=== PATIENT | female | born 1990 | race Two or more races ===

== ENCOUNTER 2017-03-04 19:15 | Observation (INO) | payer OTHER ==
[2016-01-29 14:35] VITALS: BP 135/84
[2017-03-04] MEDS ORDERED: IV RINGERS,LACTATED 1000ML 1,000 ML IV SCH (19:29)
[2017-03-04 19:53] LABS: BILIRUBIN,URINE NEGATIVE (NEG); GLUCOSE,URINE NEGATIVE (NEG); NITRITE,URINE NEGATIVE (NEG); PH,URINE 6.5; PROTEIN,URINE NEGATIVE (NEG-TRACE)
[2017-03-04 20:07] LABS: BACTERIA,URINE FEW /HPF (0-FEW); RBC,URINE 0 /HPF (0-2); SQUAMOUS EPITHELIAL CELL,UR OCC /LPF; WBC,URINE OCC /HPF (0-4)
== END 2017-03-04 21:55 | disposition home or self-care (01) ==
LOC: 3 SO LND 19:15
PROVIDERS: ADMIT Specialist; ATTEND Specialist
DX: O26.893 Other specified pregnancy related conditions, third trimester (principal); R10.9 Unspecified abdominal pain; Z3A.38 38 weeks gestation of pregnancy
CPT/HCPCS: 81001; 87086; G0378; G0379

== ENCOUNTER 2017-03-13 07:03 | Inpatient (IN) | payer OTHER ==
[~2017-03-13] VITALS: Ht 160 cm; Wt 73.9 kg
[2017-03-13] MEDS ORDERED: LIDOCAINE 1% PF 30 ML VIAL. INJ PRN (07:15)
[2017-03-13] MEDS ORDERED: OXYTOCIN 30 UNIT/500 ML PREMIX 500 ML IV PRN ×3 (07:15→22:45)
[2017-03-13] MEDS ORDERED: 0.9 % SODIUM CHLORIDE 10 ML DISP.SYRIN. IV PRN ×2 (07:15→22:45)
[2017-03-13] MEDS ORDERED: BUTORPHANOL 2 MG/ML VIAL. IV PRN (07:15)
[2017-03-13] MEDS ORDERED: fentaNYL PF VIAL 100 MCG/2 ML VIAL IV PRN (07:15)
[2017-03-13] MEDS ORDERED: TERBUTALINE 1 MG/ML VIAL. SQ PRN (07:15)
[2017-03-13 07:30] VITALS: BP 104/62
[2017-03-13] MEDS: IV RINGERS,LACTATED 1000ML 1,000 ML IV PRN ×4 (08:30→21:59)
[2017-03-13 09:51] LABS: HEMATOCRIT 37.4 % (36.0-47.0); HEMOGLOBIN 13.2 g/dL (12.0-15.5); RED BLOOD COUNT 4.48 x10^6/uL (3.50-5.40); RED CELL DISTRIBUTION WIDTH 13.8 % (11.5-14.5); WHITE BLOOD COUNT 13.9 x10^3/uL (4.0-11.0)
[2017-03-13] MEDS ORDERED: ROPIVacaine 0.2% IN 0.9%NACL PF 40 MG/20 ML DISP.SYRIN. ONE ×3 (14:06→17:05)
[2017-03-13] MEDS ORDERED: NALOXONE 0.4 MG/ML VIAL. IV PRN (14:15)
[2017-03-13] MEDS ORDERED: L&D EPIDURAL CASSETTE 100 ML EP PRN (14:15)
[2017-03-13] MEDS ORDERED: ROPIVacaine 0.2% PF 10 ML VIAL. EPI ONE (14:15)
[2017-03-13] MEDS ORDERED: ONDANSETRON PF 4 MG/2 ML VIAL. IV PRN (14:15)
[2017-03-13] MEDS ORDERED: ePHEDrine PF IN SALINE 50 MG/5 ML DISP.SYRIN IV PRN (14:15)
[2017-03-13] MEDS ORDERED: fentaNYL PF VIAL 100 MCG/2 ML VIAL EPI ONE (14:15)
[2017-03-13] MEDS ORDERED: LIDOCAINE 2% PF Vial for OR 5 ML VIAL. ONE (19:08)
[2017-03-13] MEDS ORDERED: CITRIC ACID/SODIUM CITRATE 30 ML SOLUTION. PO ONE (21:00)
--- NOTE | 2017-03-13 22:43 | PDOC1 ---
OB - History Hx of Present Care: Good Care Ultrasounds: Normal mid trimester US Obstetrical Complications: None Medical Complications: None Past Family/Social History * Past Medical, Surgical, Family and Obstetric Histories reviewed from chart. Blood Type: O+ Rubella: Immune RPR/VDRL: Negative GBS Status: Negative HBsAG: Negative OB - Chief Complaint & HPI Date of Admission: Date of Admission: Mar 13, 2017 at 07:03 Chief Complaint/History : 3 Para: 2 EDC: Feb 14, 2017 Reason for admission: induction of labor Indication for induction: other Admission Nurse Assessment Rev: Yes Problems: OB - Admission Exam Physical Exam Vitals: VS - Last 72 Hours, by Label Date Time Temp Pulse Resp B/P (MAP) Pulse Ox O2 Delivery O2 Flow Rate FiO2 03/13/17 14:46 20 100 Room Air 03/13/17 14:36 20 100 Room Air 03/13/17 07:30 97.9 95 20 104/62 (76) 97.9 HEENT: Normal, Nasal Mucosa Normal, Oropharynx Normal, Moist Membranes, Fontanelles Normal Heart: Regular Rate Lungs: Clear, Equal Abdomen: Gravid Extremities: Normal Pulses, No tenderness or swelling Reflexes: Normal Cervical Dilatation: 1cm Effacement: 25% Station: Ballotable Membranes: Intact Amniotic Fluid: Clear Accelerations: Accelerations Present Short Term Variability: Present Contractions on Admission: >10 Minutes Apart Intensity: Mild Assessment/Plan Assessment/Plan TIUP Induction ACSVD Problems: MASSIMO RAYMUNDO MD Mar 13, 2017 22:43
[2017-03-13] MEDS ORDERED: PHENYLEPH/MINERAL OIL/PETROLAT RECTAL OINTMENT 28GM TUBE. RC PRN (22:45)
[2017-03-13] MEDS ORDERED: diphenhydrAMINE HCL 25 MG CAPSULE PO PRN (22:45)
[2017-03-13] MEDS ORDERED: ACETAMINOPHEN 325 MG TABLET. PO PRN (22:45)
[2017-03-13] MEDS ORDERED: MAGNESIUM HYDROXIDE 2,400 MG/30 ML ORAL.SUSP. PO PRN (22:45)
[2017-03-13] MEDS ORDERED: BENZOCAINE 20% TOPICAL AEROSOL SPRAY 57GM CAN. TP PRN (22:45)
[2017-03-13] MEDS ORDERED: ZOLPIDEM 5 MG TABLET. PO PRN (22:45)
[2017-03-13] MEDS ORDERED: HYDROCORTISONE 1% TOPICAL OINTMENT 30GM TUBE. TP PRN (22:45)
[2017-03-13] MEDS ORDERED: SIMETHICONE 80 MG TAB.CHEW PO PRN (22:45)
[2017-03-13] MEDS ORDERED: MAG HYDROX/ALUMINUM HYD/SIMETH 30 ML ORAL.SUSP PO PRN (22:45)
--- NOTE | 2017-03-13 22:45 | PDOC ---
VAGINAL DELIVERY DATE DATE: 03/13/17 TIME: 22:43 : 3 Para: 2 EDC: Mar 16, 2017 VAGINAL DELIVERY: VTX VACCUM ASSISTED: No PLACENTA: Spontaneous SEX: Female WEIGHT 7/7 Nuchal Cord: No Amniotic Fluid: Clear PAIN: Epidural EPISIOTOMY: No EXTENSION: No EBL 300cc COMPLICATIONS None CONDITION Stable Signs of Intrauterine Infectio: None Shoulder Dystocia: No DIAGNOSIS TIUP del Problems: MASSIMO RAYMUNDO MD Mar 13, 2017 22:45
[2017-03-14 01:45] VITALS: BP 102/61
[2017-03-14 03:02] VITALS: BP 112/73
[2017-03-14 03:18] LABS: RPR REFLEX Non Reactive (Non Reactive)
[2017-03-14] MEDS: IBUPROFEN 800 MG TABLET. PO SCH ×2 (04:52→17:20)
[2017-03-14 05:51] VITALS: BP 99/65
[2017-03-14] MEDS ORDERED: FERROUS SULFATE 325 MG TABLET. PO SCH (08:00)
[2017-03-14] MEDS: HYDROcodone/APAP 5/325MG 1 TAB TABLET PO PRN (08:15)
--- NOTE | 2017-03-14 11:09 | PDOC ---
SURGICAL PROGRESS NOTE Subjective For surgery in the am. This may well be a ventral hernia and not umbilical hernia. Al questions answered. Vital Signs Vital Signs Date Time Temp Pulse Resp B/P (MAP) Pulse Ox O2 Delivery O2 Flow Rate FiO2 03/14/17 05:51 98.5 81 16 99/65 (76) 98.5 03/14/17 01:45 Room Air 03/13/17 14:46 100 I&O Intake and Output 03/14/17 06:59 Intake Total 2000 ml Balance 2000 ml Intake IV Total 2000 ml Labs Laboratory Tests Test 03/13/17 08:00 03/14/17 08:00 White Blood Count 13.9 x10^3/uL (4.0-11.0) Red Blood Count 4.48 x10^6/uL (3.50-5.40) Hemoglobin 13.2 g/dL (12.0-15.5) Hematocrit 37.4 % (36.0-47.0) 38.6 % (36.0-47.0) Mean Corpuscular Volume 84 fL (79-100) Mean Corpuscular Hemoglobin 30 pg (25-35) Mean Corpuscular Hemoglobin Concent 35 g/dL (31-37) Red Cell Distribution Width 13.8 % (11.5-14.5) Platelet Count 226 x10^3/uL (140-400) RPR Titer Additional Testing Non reactive (Non Reactive) Laboratory Tests Test 03/14/17 08:00 Hematocrit 38.6 % (36.0-47.0) BERNARDO VELASCO MD Mar 14, 2017 11:09
[2017-03-14 13:59] VITALS: BP 100/62
--- NOTE | 2017-03-14 17:22 | PDOC ---
OB Progress Note Date of Service 03/14/17 Time of Evaluation 1720 Notes Pt. feeling well. Lab Laboratory Tests Test 03/13/17 08:00 03/14/17 08:00 White Blood Count 13.9 x10^3/uL (4.0-11.0) Red Blood Count 4.48 x10^6/uL (3.50-5.40) Hemoglobin 13.2 g/dL (12.0-15.5) Hematocrit 37.4 % (36.0-47.0) 38.6 % (36.0-47.0) Mean Corpuscular Volume 84 fL (79-100) Mean Corpuscular Hemoglobin 30 pg (25-35) Mean Corpuscular Hemoglobin Concent 35 g/dL (31-37) Red Cell Distribution Width 13.8 % (11.5-14.5) Platelet Count 226 x10^3/uL (140-400) RPR Titer Additional Testing Non reactive (Non Reactive) Laboratory Tests Test 03/14/17 08:00 Hematocrit 38.6 % (36.0-47.0) Medications Current Medications Sodium Chloride (Normal Saline Flush) 3 ml QSHIFT PRN IV AFTER MEDS AND BLOOD DRAWS; Start 03/13/17 at 07:15; Stop 03/14/17 at 09:53; Status DC Ringer's Solution 1,000 ml @ 125 mls/hr Q8H PRN IV PER PROTOCOL Last administered on 03/13/17t 21:59; Start 03/13/17 at 07:15; Stop 03/14/17 at 09:53 ; Status DC Butorphanol Tartrate (Stadol) 2 mg PRN Q1HR PRN IV Severe labor pain; Start at 07:15; Stop 03/14/17 at 09:53; Status DC Fentanyl Citrate (Fentanyl 2ml Vial) 100 mcg PRN Q20MIN PRN IV Labor pain; Start 03/13/17 at 07:15; Stop 03/14/17 at 09:53; Status DC Terbutaline Sulfate (Brethine) 0.25 mg 1X PRN PRN SQ SEE COMMENTS; Start at 07:15; Stop 03/14/17 at 07:14; Status DC Lidocaine HCl 30 ml 1X PRN PRN INJ SEE COMMENTS; Start 03/13/17 at 07:15; Stop 03/14/17 at 09:53; Status DC Oxytocin/Sodium Chloride 500 ml @ 0 mls/hr CONT PRN IV SEE I/O RECORD Last administered on 03/13/17 08:32; Start 03/13/17 at 07:15; Stop 03/14/17 at 09:53 ; Status DC Oxytocin/Sodium Chloride 500 ml @ 0 mls/hr CONT PRN PRN IV Post delivery bleeding; Start 03/13/17 at 07:15; Stop 03/14/17 at 09:53; Status DC Ephedrine Sulfate 10 mg PRN Q2MIN PRN IV IF SBP<90; Start 03/13/17 at 14:15; Stop 03/14/17 at 09:53; Status DC Naloxone HCl (Narcan) 0.04 mg PRN Q1MIN PRN IV SEE COMMENTS; Start 03/13/17 at 14:15; Stop 03/14/17 at 09:53; Status DC Fentanyl Citrate (Fentanyl 2ml Vial) 100 mcg 1X ONCE EPI Last administered on 03/13/17 14:46; Start 03/13/17 at 14:15; Stop 03/14/17 at 09:53; Status DC Ropivacaine/ Fentanyl/NS 100 ml @ 14 mls/hr CONT PRN EP PAIN Last administered on 03/13/17 14:36; Start 03/13/17 at 14:15; Stop 03/14/17 at 09:53 ; Status DC Ondansetron HCl (Zofran) 4 mg PRN Q6HRS PRN IV NAUSEA/VOMITING; Start 03/13/17 at 14:15; Stop 03/14/17 at 09:53; Status DC Ropivacaine (Naropin 0.2%) 20 ml 1X ONCE EPI ; Start 03/13/17 at 14:15; Stop at 09:53; Status DC Ropivacaine 40 mg STK-MED ONCE .ROUTE ; Start 03/13/17 at 14:06; Stop 03/14/17 at 09:53; Status DC Ropivacaine 40 mg STK-MED ONCE .ROUTE ; Start 03/13/17 at 17:05; Stop 03/14/17 at 09:53; Status DC Lidocaine HCl (Lidocaine Pf 2% Vial) 5 ml STK-MED ONCE .ROUTE ; Start 03/13/17 at 19:08; Stop 03/14/17 at 09:53; Status DC Citric Acid/ Sodium Citrate (Bicitra) 30 ml 1X ONCE PO Last administered on 21:07; Start 03/13/17 at 21:00; Stop 03/13/17 at 21:02; Status DC Sodium Chloride (Normal Saline Flush) 10 ml QSHIFT PRN IV AFTER MEDS AND BLOOD DRAWS; Start 03/13/17 at 22:45; Stop 03/14/17 at 09:53; Status DC Oxytocin/Sodium Chloride 500 ml @ 62.5 mls/hr CONT PRN IV SEE I/O RECORD; Start 03/13/17 at 22:45; Stop 03/14/17 at 06:44; Status DC Acetaminophen (Tylenol) 650 mg PRN Q6HRS PRN PO MILD PAIN / TEMP; Start at 22:45 Ibuprofen (Motrin) 800 mg Q8HRS PO Last administered on 03/14/17 17:20; Start 03/14/17 at 06:00 Magnesium Hydroxide (Milk Of Magnesia) 2,400 mg PRN DAILY PRN PO CONSTIPATION; Start 03/13/17 at 22:45 Al Hydroxide/Mg Hydroxide (Mylanta Plus Xs) 30 ml PRN Q4HRS PRN PO HEARTBURN / GAS; Start 03/13/17 at 22:45 Simethicone (Gas-X) 80 mg PRN AFTMEALHC PRN PO GAS / BLOATING Last administered on 03/14/17 12:20; Start 03/13/17 at 22:45 Diphenhydramine HCl (Benadryl) 25 mg PRN Q6HRS PRN PO ITCHING Last administered on 03/14/17 01:14; Start 03/13/17 at 22:45 Benzocaine (Americaine) 1 spray PRN QID PRN TP TOPICAL PAIN; Start 03/13/17 at 22:45 Phenyleph/Shark Oil/Min Oil/Petrol (Preparation H) 1 evelina PRN QID PRN RC RECTAL PAIN; Start 03/13/17 at 22:45 Hydrocortisone (Cortaid) 1 evelina PRN QID PRN TP RECTAL PAIN; Start 03/13/17 at 22 :45 Ferrous Sulfate (Feosol) 325 mg BIDWMEALS PO ; Start 03/14/17 at 08:00 Zolpidem Tartrate (Ambien) 5 mg PRN QHS PRN PO INSOMNIA, MAY REPEAT X1; Start 03/13/17 at 22:45 Info (Do NOT chart on this placeholder) 1 ea 1X PRN PRN MC SEE COMMENTS; Start 03/13/17 at 22:45; Stop 03/14/17 at 09:53; Status DC Acetaminophen/ Hydrocodone Bitart (Lortab 5/325) 1 tab PRN Q4HRS PRN PO PAIN Last administered on 03/14/17t 08:15; Start 03/13/17 at 22:45 Ropivacaine 80 mg STK-MED ONCE .ROUTE ; Start 03/13/17 at 15:00; Stop 03/14/17 at 09:53; Status DC Cefazolin Sodium 50 ml @ 100 mls/hr 1X PREOP PRN IV PER PROTOCOL; Start at 11:30; Stop 03/14/17 at 19:00 Ondansetron HCl (Zofran) 4 mg PRN Q6HRS PRN IV NAUSEA/VOMITING; Start 03/15/17 at 07:00; Stop 03/15/17 at 23:00 Fentanyl Citrate (Fentanyl 2ml Vial) 25 mcg PRN Q5MIN PRN IV MILD PAIN; Start 03/15/17 at 07:00; Stop 03/15/17 at 23:00 Fentanyl Citrate (Fentanyl 2ml Vial) 50 mcg PRN Q5MIN PRN IV MODERATE PAIN; Start 03/15/17 at 07:00; Stop 03/15/17 at 23:00 Morphine Sulfate 1 mg PRN Q10MIN PRN IV SEVERE PAIN; Start 03/15/17 at 07:00; Stop 03/15/17 at 23:00 Ringer's Solution 1,000 ml @ 30 mls/hr Q24H IV ; Start 03/15/17 at 07:00; Stop 03/15/17 at 18:59 Lidocaine HCl 2 ml PRN 1X PRN ID PRIOR TO IV START; Start 03/15/17 at 07:00; Stop 03/15/17 at 23:00 Hydromorphone HCl (Dilaudid) 0.5 mg PRN Q10MIN PRN IV SEV PAIN, Second choice; Start 6/30/17 at 07:00; Stop 03/15/17 at 23:00 Prochlorperazine Edisylate (Compazine) 5 mg PACU PRN PRN IV NAUSEA, MRX1; Start 03/15/17 at 07:00; Stop 03/15/17 at 23:00 Exam Abd: soft, fundus firm at umbilicus Assessment PPD#1 s/p Hernia Plan of Care: Continue current Tx, Mgmt (Pt. to have hernia repair tomorrow.) ECTOR MACE Jr, MD Mar 14, 2017 17:22
[2017-03-14 21:22] VITALS: BP_SYST 117; BP_SYST 131; BP_DIAS 81
[2017-03-15] VITALS (14 sets, daily range): BP systolic 107–134; BP diastolic 56–84
[2017-03-15] MEDS: IBUPROFEN 800 MG TABLET. PO SCH ×4 (06:00→22:29)
[2017-03-15] MEDS ORDERED: PROCHLORPERAZINE 10 MG/2 ML VIAL. IV PRN (07:00)
[2017-03-15] MEDS ORDERED: IV RINGERS,LACTATED 1000ML 1,000 ML IV SCH (07:00)
[2017-03-15] MEDS ORDERED: MORPHINE SULFATE 2 MG/ML DISP.SYRIN. IV PRN (07:00)
[2017-03-15] MEDS ORDERED: LIDOCAINE 1% 1 ML SYRINGE. ID PRN (07:00)
[2017-03-15] MEDS ORDERED: HYDROmorphone 2 MG/ML VIAL IV PRN (07:00)
[2017-03-15] MEDS ORDERED: fentaNYL PF VIAL 100 MCG/2 ML VIAL IV PRN ×2 (07:00)
[2017-03-15] MEDS ORDERED: ONDANSETRON PF 4 MG/2 ML VIAL. IV PRN (07:00)
[2017-03-15] MEDS ORDERED: BUPIVACAINE-EPI 0.5%-1:200000 50 ML VIAL. ONE (08:33)
[2017-03-15] MEDS ORDERED: DESFLURANE > 120 MINUTES IH ONE (08:38)
[2017-03-15] MEDS ORDERED: MIDAZOLAM HCL/PF 2 MG/2 ML VIAL. ONE (08:39)
[2017-03-15] MEDS ORDERED: GLYCOPYRROLATE 1 MG/5 ML VIAL. ONE (08:39)
[2017-03-15] MEDS ORDERED: SUCCINYLCHOLINE 200 MG/10 ML VIAL. ONE (08:39)
[2017-03-15] MEDS ORDERED: fentaNYL PF VIAL 100 MCG/2 ML VIAL ONE ×2 (08:39→10:32)
[2017-03-15] MEDS ORDERED: ROCURONIUM 50 MG/5 ML VIAL. ONE (08:40)
[2017-03-15] MEDS ORDERED: KETOROLAC 30 MG/ML INJ FOR OR. INJ ONE (08:40)
[2017-03-15] MEDS ORDERED: DEXAMETHASONE SOD PHOS 20 MG/5 ML VIAL. ONE (08:40)
[2017-03-15] MEDS ORDERED: PROPOFOL 20 ML IV ONE (08:40)
[2017-03-15] MEDS ORDERED: NEOSTIGMINE METHYLSULFATE 5 MG/5 ML SYRINGE. ONE (08:40)
[2017-03-15] MEDS ORDERED: LIDOCAINE 2% PF Vial for OR 5 ML VIAL. ONE (08:40)
[2017-03-15] MEDS ORDERED: ONDANSETRON PF 4 MG/2 ML VIAL. ONE (08:40)
--- NOTE | 2017-03-15 09:13 | PDOC ---
SURGICAL PROGRESS NOTE Subjective Op Note: Surgeon............................................Arthur Pre op diag.......................................Abdominal wall hernia...Umbilical? Post or diag......................................Same Anesthesia.......................................General Procedure........................................Repair ventral hernia Drains..............................................none Fluids..............................................see anesthesia sheet Blood loss........................................5-10cc Condition.........................................satisfactory Vital Signs Vital Signs Date Time Temp Pulse Resp B/P (MAP) Pulse Ox O2 Delivery O2 Flow Rate FiO2 03/15/17 08:25 98.4 88 16 119/67 98 Room Air 98.4 Labs Laboratory Tests Test 03/14/17 08:00 Hematocrit 38.6 % (36.0-47.0) BERNARDO VELASCO MD Mar 15, 2017 09:13
[2017-03-15] MEDS: HYDROcodone/APAP 5/325MG 1 TAB TABLET PO PRN ×3 (14:21→22:29)
--- NOTE | 2017-03-15 16:11 | PDOC ---
Provider Note Provider Note Doing well VSS post op umb repair Fu in AM MASSIMO RAYMUNDO MD Mar 15, 2017 16:11
[2017-03-16 05:55] VITALS: BP 111/66
[2017-03-16] MEDS: IBUPROFEN 800 MG TABLET. PO SCH ×2 (06:00→15:34)
[2017-03-16 07:31] LABS: BASO # 0.2 x10^3/uL (0.0-0.2); BASO % 1 % (0-3); EOS % 1 % (0-3); HEMATOCRIT 34.8 % (36.0-47.0); HEMOGLOBIN 11.8 g/dL (12.0-15.5); LYMPH # 2.9 x10^3/uL (1.0-4.8); LYMPH % 21 % (24-48); MEAN CORPUSCULAR HEMOGLOBIN 29 pg (25-35); MEAN CORPUSCULAR HGB CONC 34 g/dL (31-37); MEAN CORPUSCULAR VOLUME 86 fL (79-100); MONO % 8 % (0-9); NEUT % 70 % (31-73); PLATELET COUNT 193 x10^3/uL (140-400); RED BLOOD COUNT 4.07 x10^6/uL (3.50-5.40); RED CELL DISTRIBUTION WIDTH 13.8 % (11.5-14.5); WHITE BLOOD COUNT 14.2 x10^3/uL (4.0-11.0)
[2017-03-16] MEDS: HYDROcodone/APAP 5/325MG 1 TAB TABLET PO PRN ×3 (07:55→12:01)
[2017-03-16 07:59] LABS: % BASOS 1 % (0-3); % EOS 1 % (0-5); CALCIUM 8.8 mg/dL (8.5-10.1); CREATININE 0.6 mg/dL (0.6-1.0); GFR 118.2; POTASSIUM 3.3 mmol/L (3.5-5.1)
[2017-03-16 08:00] LABS: PLT ESTIMATE ADEQUATE (ADEQUATE)
[2017-03-16 12:08] VITALS: BP 95/58
--- NOTE | 2017-03-16 12:10 | PDOC ---
SURGICAL PROGRESS NOTE Subjective POD #1 Doing well with the normal incisional pain. Up an about. Home today if OK with Dr. Brewer. Will follow in office in two weeks. Instructions given. Vital Signs Vital Signs Date Time Temp Pulse Resp B/P (MAP) Pulse Ox O2 Delivery O2 Flow Rate FiO2 03/16/17 08:55 18 Room Air 03/16/17 05:55 98.1 96 111/66 (81) 98.1 03/15/17 20:20 97 03/15/17 13:30 2.0 I&O Intake and Output 03/16/17 07:00 Intake Total 2000 ml Balance 2000 ml Intake Oral 50 ml IV Total 1951 ml Labs Laboratory Tests Test 03/16/17 07:25 White Blood Count 14.2 x10^3/uL (4.0-11.0) Red Blood Count 4.07 x10^6/uL (3.50-5.40) Hemoglobin 11.8 g/dL (12.0-15.5) Hematocrit 34.8 % (36.0-47.0) Mean Corpuscular Volume 86 fL (79-100) Mean Corpuscular Hemoglobin 29 pg (25-35) Mean Corpuscular Hemoglobin Concent 34 g/dL (31-37) Red Cell Distribution Width 13.8 % (11.5-14.5) Platelet Count 193 x10^3/uL (140-400) Neutrophils (%) (Auto) 70 % (31-73) Lymphocytes (%) (Auto) 21 % (24-48) Monocytes (%) (Auto) 8 % (0-9) Eosinophils (%) (Auto) 1 % (0-3) Basophils (%) (Auto) 1 % (0-3) Neutrophils # (Auto) 9.9 x10^3uL (1.8-7.7) Lymphocytes # (Auto) 2.9 x10^3/uL (1.0-4.8) Monocytes # (Auto) 1.1 x10^3/uL (0.0-1.1) Eosinophils # (Auto) 0.1 x10^3/uL (0.0-0.7) Basophils # (Auto) 0.2 x10^3/uL (0.0-0.2) Segmented Neutrophils % 60 % (35-66) Band Neutrophils % 10 % (0-9) Lymphocytes % 23 % (24-48) Monocytes % 4 % (0-10) Eosinophils % 1 % (0-5) Basophils % 1 % (0-3) Metamyelocytes % 1 % (0-0) Platelet Estimate Adequate (ADEQUATE) Sodium Level 140 mmol/L (136-145) Potassium Level 3.3 mmol/L (3.5-5.1) Chloride Level 104 mmol/L (98-107) Carbon Dioxide Level 25 mmol/L (21-32) Anion Gap 11 (6-14) Blood Urea Nitrogen 8 mg/dL (7-20) Creatinine 0.6 mg/dL (0.6-1.0) Estimated GFR (Cockcroft-Gault) 118.2 Glucose Level 72 mg/dL (70-99) Calcium Level 8.8 mg/dL (8.5-10.1) Laboratory Tests Test 03/16/17 07:25 White Blood Count 14.2 x10^3/uL (4.0-11.0) Red Blood Count 4.07 x10^6/uL (3.50-5.40) Hemoglobin 11.8 g/dL (12.0-15.5) Hematocrit 34.8 % (36.0-47.0) Mean Corpuscular Volume 86 fL (79-100) Mean Corpuscular Hemoglobin 29 pg (25-35) Mean Corpuscular Hemoglobin Concent 34 g/dL (31-37) Red Cell Distribution Width 13.8 % (11.5-14.5) Platelet Count 193 x10^3/uL (140-400) Neutrophils (%) (Auto) 70 % (31-73) Lymphocytes (%) (Auto) 21 % (24-48) Monocytes (%) (Auto) 8 % (0-9) Eosinophils (%) (Auto) 1 % (0-3) Basophils (%) (Auto) 1 % (0-3) Neutrophils # (Auto) 9.9 x10^3uL (1.8-7.7) Lymphocytes # (Auto) 2.9 x10^3/uL (1.0-4.8) Monocytes # (Auto) 1.1 x10^3/uL (0.0-1.1) Eosinophils # (Auto) 0.1 x10^3/uL (0.0-0.7) Basophils # (Auto) 0.2 x10^3/uL (0.0-0.2) Segmented Neutrophils % 60 % (35-66) Band Neutrophils % 10 % (0-9) Lymphocytes % 23 % (24-48) Monocytes % 4 % (0-10) Eosinophils % 1 % (0-5) Basophils % 1 % (0-3) Metamyelocytes % 1 % (0-0) Platelet Estimate Adequate (ADEQUATE) Sodium Level 140 mmol/L (136-145) Potassium Level 3.3 mmol/L (3.5-5.1) Chloride Level 104 mmol/L (98-107) Carbon Dioxide Level 25 mmol/L (21-32) Anion Gap 11 (6-14) Blood Urea Nitrogen 8 mg/dL (7-20) Creatinine 0.6 mg/dL (0.6-1.0) Estimated GFR (Cockcroft-Gault) 118.2 Glucose Level 72 mg/dL (70-99) Calcium Level 8.8 mg/dL (8.5-10.1) BERNARDO VELASCO MD Mar 16, 2017 12:10
--- NOTE | 2017-03-16 15:06 | PDOC ---
OB Progress Note Date of Service 03/16/17 Time of Evaluation 1505 Notes Pt. feeling well with no complaints. Lab Laboratory Tests Test 03/16/17 07:25 White Blood Count 14.2 x10^3/uL (4.0-11.0) Red Blood Count 4.07 x10^6/uL (3.50-5.40) Hemoglobin 11.8 g/dL (12.0-15.5) Hematocrit 34.8 % (36.0-47.0) Mean Corpuscular Volume 86 fL (79-100) Mean Corpuscular Hemoglobin 29 pg (25-35) Mean Corpuscular Hemoglobin Concent 34 g/dL (31-37) Red Cell Distribution Width 13.8 % (11.5-14.5) Platelet Count 193 x10^3/uL (140-400) Neutrophils (%) (Auto) 70 % (31-73) Lymphocytes (%) (Auto) 21 % (24-48) Monocytes (%) (Auto) 8 % (0-9) Eosinophils (%) (Auto) 1 % (0-3) Basophils (%) (Auto) 1 % (0-3) Neutrophils # (Auto) 9.9 x10^3uL (1.8-7.7) Lymphocytes # (Auto) 2.9 x10^3/uL (1.0-4.8) Monocytes # (Auto) 1.1 x10^3/uL (0.0-1.1) Eosinophils # (Auto) 0.1 x10^3/uL (0.0-0.7) Basophils # (Auto) 0.2 x10^3/uL (0.0-0.2) Segmented Neutrophils % 60 % (35-66) Band Neutrophils % 10 % (0-9) Lymphocytes % 23 % (24-48) Monocytes % 4 % (0-10) Eosinophils % 1 % (0-5) Basophils % 1 % (0-3) Metamyelocytes % 1 % (0-0) Platelet Estimate Adequate (ADEQUATE) Sodium Level 140 mmol/L (136-145) Potassium Level 3.3 mmol/L (3.5-5.1) Chloride Level 104 mmol/L (98-107) Carbon Dioxide Level 25 mmol/L (21-32) Anion Gap 11 (6-14) Blood Urea Nitrogen 8 mg/dL (7-20) Creatinine 0.6 mg/dL (0.6-1.0) Estimated GFR (Cockcroft-Gault) 118.2 Glucose Level 72 mg/dL (70-99) Calcium Level 8.8 mg/dL (8.5-10.1) Laboratory Tests Test 03/16/17 07:25 White Blood Count 14.2 x10^3/uL (4.0-11.0) Red Blood Count 4.07 x10^6/uL (3.50-5.40) Hemoglobin 11.8 g/dL (12.0-15.5) Hematocrit 34.8 % (36.0-47.0) Mean Corpuscular Volume 86 fL (79-100) Mean Corpuscular Hemoglobin 29 pg (25-35) Mean Corpuscular Hemoglobin Concent 34 g/dL (31-37) Red Cell Distribution Width 13.8 % (11.5-14.5) Platelet Count 193 x10^3/uL (140-400) Neutrophils (%) (Auto) 70 % (31-73) Lymphocytes (%) (Auto) 21 % (24-48) Monocytes (%) (Auto) 8 % (0-9) Eosinophils (%) (Auto) 1 % (0-3) Basophils (%) (Auto) 1 % (0-3) Neutrophils # (Auto) 9.9 x10^3uL (1.8-7.7) Lymphocytes # (Auto) 2.9 x10^3/uL (1.0-4.8) Monocytes # (Auto) 1.1 x10^3/uL (0.0-1.1) Eosinophils # (Auto) 0.1 x10^3/uL (0.0-0.7) Basophils # (Auto) 0.2 x10^3/uL (0.0-0.2) Segmented Neutrophils % 60 % (35-66) Band Neutrophils % 10 % (0-9) Lymphocytes % 23 % (24-48) Monocytes % 4 % (0-10) Eosinophils % 1 % (0-5) Basophils % 1 % (0-3) Metamyelocytes % 1 % (0-0) Platelet Estimate Adequate (ADEQUATE) Sodium Level 140 mmol/L (136-145) Potassium Level 3.3 mmol/L (3.5-5.1) Chloride Level 104 mmol/L (98-107) Carbon Dioxide Level 25 mmol/L (21-32) Anion Gap 11 (6-14) Blood Urea Nitrogen 8 mg/dL (7-20) Creatinine 0.6 mg/dL (0.6-1.0) Estimated GFR (Cockcroft-Gault) 118.2 Glucose Level 72 mg/dL (70-99) Calcium Level 8.8 mg/dL (8.5-10.1) Medications Current Medications Sodium Chloride (Normal Saline Flush) 3 ml QSHIFT PRN IV AFTER MEDS AND BLOOD DRAWS; Start 03/13/17 at 07:15; Stop 03/14/17 at 09:53; Status DC Ringer's Solution 1,000 ml @ 125 mls/hr Q8H PRN IV PER PROTOCOL Last administered on 03/13/17 21:59; Start 03/13/17 at 07:15; Stop 03/14/17 at 09:53 ; Status DC Butorphanol Tartrate (Stadol) 2 mg PRN Q1HR PRN IV Severe labor pain; Start at 07:15; Stop 03/14/17 at 09:53; Status DC Fentanyl Citrate (Fentanyl 2ml Vial) 100 mcg PRN Q20MIN PRN IV Labor pain; Start 03/13/17 at 07:15; Stop 03/14/17 at 09:53; Status DC Terbutaline Sulfate (Brethine) 0.25 mg 1X PRN PRN SQ SEE COMMENTS; Start at 07:15; Stop 03/14/17 at 07:14; Status DC Lidocaine HCl 30 ml 1X PRN PRN INJ SEE COMMENTS; Start 03/13/17 at 07:15; Stop 03/14/17 at 09:53; Status DC Oxytocin/Sodium Chloride 500 ml @ 0 mls/hr CONT PRN IV SEE I/O RECORD Last administered on 03/13/17 08:32; Start 03/13/17 at 07:15; Stop 03/14/17 at 09:53 ; Status DC Oxytocin/Sodium Chloride 500 ml @ 0 mls/hr CONT PRN PRN IV Post delivery bleeding; Start 03/13/17 at 07:15; Stop 03/14/17 at 09:53; Status DC Ephedrine Sulfate 10 mg PRN Q2MIN PRN IV IF SBP<90; Start 03/13/17 at 14:15; Stop 03/14/17 at 09:53; Status DC Naloxone HCl (Narcan) 0.04 mg PRN Q1MIN PRN IV SEE COMMENTS; Start 03/13/17 at 14:15; Stop 03/14/17 at 09:53; Status DC Fentanyl Citrate (Fentanyl 2ml Vial) 100 mcg 1X ONCE EPI Last administered on 03/13/17 14:46; Start 03/13/17 at 14:15; Stop 03/14/17 at 09:53; Status DC Ropivacaine/ Fentanyl/NS 100 ml @ 14 mls/hr CONT PRN EP PAIN Last administered on 03/13/17 14:36; Start 03/13/17 at 14:15; Stop 03/14/17 at 09:53 ; Status DC Ondansetron HCl (Zofran) 4 mg PRN Q6HRS PRN IV NAUSEA/VOMITING; Start 03/13/17 at 14:15; Stop 03/14/17 at 09:53; Status DC Ropivacaine (Naropin 0.2%) 20 ml 1X ONCE EPI ; Start 03/13/17 at 14:15; Stop at 09:53; Status DC Ropivacaine 40 mg STK-MED ONCE .ROUTE ; Start 03/13/17 at 14:06; Stop 03/14/17 at 09:53; Status DC Ropivacaine 40 mg STK-MED ONCE .ROUTE ; Start 03/13/17 at 17:05; Stop 03/14/17 at 09:53; Status DC Lidocaine HCl (Lidocaine Pf 2% Vial) 5 ml STK-MED ONCE .ROUTE ; Start 03/13/17 at 19:08; Stop 03/14/17 at 09:53; Status DC Citric Acid/ Sodium Citrate (Bicitra) 30 ml 1X ONCE PO Last administered on 21:07; Start 03/13/17 at 21:00; Stop 03/13/17 at 21:02; Status DC Sodium Chloride (Normal Saline Flush) 10 ml QSHIFT PRN IV AFTER MEDS AND BLOOD DRAWS; Start 03/13/17 at 22:45; Stop 03/14/17 at 09:53; Status DC Oxytocin/Sodium Chloride 500 ml @ 62.5 mls/hr CONT PRN IV SEE I/O RECORD; Start 03/13/17 at 22:45; Stop 03/14/17 at 06:44; Status DC Acetaminophen (Tylenol) 650 mg PRN Q6HRS PRN PO MILD PAIN / TEMP; Start at 22:45 Ibuprofen (Motrin) 800 mg Q8HRS PO Last administered on 03/15/17 22:29; Start 03/14/17 at 06:00 Magnesium Hydroxide (Milk Of Magnesia) 2,400 mg PRN DAILY PRN PO CONSTIPATION; Start 03/13/17 at 22:45 Al Hydroxide/Mg Hydroxide (Mylanta Plus Xs) 30 ml PRN Q4HRS PRN PO HEARTBURN / GAS; Start 03/13/17 at 22:45 Simethicone (Gas-X) 80 mg PRN AFTMEALHC PRN PO GAS / BLOATING Last administered on 03/14/17 12:20; Start 03/13/17 at 22:45 Diphenhydramine HCl (Benadryl) 25 mg PRN Q6HRS PRN PO ITCHING Last administered on 03/14/17 01:14; Start 03/13/17 at 22:45 Benzocaine (Americaine) 1 spray PRN QID PRN TP TOPICAL PAIN; Start 03/13/17 at 22:45 Phenyleph/Shark Oil/Min Oil/Petrol (Preparation H) 1 evelina PRN QID PRN RC RECTAL PAIN; Start 03/13/17 at 22:45 Hydrocortisone (Cortaid) 1 evelina PRN QID PRN TP RECTAL PAIN; Start 03/13/17 at 22 :45 Ferrous Sulfate (Feosol) 325 mg BIDWMEALS PO Last administered on 03/14/17 17: 21; Start 03/14/17 at 08:00; Stop 03/15/17 at 17:30; Status DC Zolpidem Tartrate (Ambien) 5 mg PRN QHS PRN PO INSOMNIA, MAY REPEAT X1; Start 03/13/17 at 22:45 Info (Do NOT chart on this placeholder) 1 ea 1X PRN PRN MC SEE COMMENTS; Start 03/13/17 at 22:45; Stop 03/14/17 at 09:53; Status DC Acetaminophen/ Hydrocodone Bitart (Lortab 5/325) 1 tab PRN Q4HRS PRN PO PAIN Last administered on 03/16/17 12:01; Start 03/13/17 at 22:45 Ropivacaine 80 mg STK-MED ONCE .ROUTE ; Start 03/13/17 at 15:00; Stop 03/14/17 at 09:53; Status DC Cefazolin Sodium 50 ml @ 100 mls/hr 1X PREOP PRN IV PER PROTOCOL; Start at 11:30; Stop 03/14/17 at 19:00; Status DC Ondansetron HCl (Zofran) 4 mg PRN Q6HRS PRN IV NAUSEA/VOMITING; Start 03/15/17 at 07:00; Stop 03/15/17 at 23:00; Status DC Fentanyl Citrate (Fentanyl 2ml Vial) 25 mcg PRN Q5MIN PRN IV MILD PAIN; Start 03/15/17 at 07:00; Stop 03/15/17 at 23:00; Status DC Fentanyl Citrate (Fentanyl 2ml Vial) 50 mcg PRN Q5MIN PRN IV MODERATE PAIN Last administered on 03/15/17 11:30; Start 03/15/17 at 07:00; Stop 03/15/17 at 23:00; Status DC Morphine Sulfate 1 mg PRN Q10MIN PRN IV SEVERE PAIN; Start 03/15/17 at 07:00; Stop 03/15/17 at 23:00; Status DC Ringer's Solution 1,000 ml @ 30 mls/hr Q24H IV Last administered on 03/15/17 08:30; Start 03/15/17 at 07:00; Stop 03/15/17 at 18:12; Status DC Lidocaine HCl 2 ml PRN 1X PRN ID PRIOR TO IV START; Start 03/15/17 at 07:00; Stop 03/15/17 at 23:00; Status DC Hydromorphone HCl (Dilaudid) 0.5 mg PRN Q10MIN PRN IV SEV PAIN, Second choice; Start 03/15/17 at 07:00; Stop 03/15/17 at 23:00; Status DC Prochlorperazine Edisylate (Compazine) 5 mg PACU PRN PRN IV NAUSEA, MRX1; Start 03/15/17 at 07:00; Stop 03/15/17 at 23:00; Status DC Cefazolin Sodium 50 ml @ As Directed STK-MED ONCE IV ; Start 03/15/17 at 08:19; Stop 03/15/17 at 08:20; Status DC Bupivacaine HCl/ Epinephrine Bitart (Marcaine-Epi 0.5%-[id number]) 50 ml STK-MED ONCE .ROUTE Last administered on 03/15/17t 10:22; Start 03/15/17 at 08:33; Stop 03/15/17 at 08:34; Status DC Desflurane (Suprane) 90 ml STK-MED ONCE IH ; Start 03/15/17 at 08:38; Stop 03/15 at 08:39; Status DC Midazolam HCl (Versed) 2 mg STK-MED ONCE .ROUTE ; Start 03/15/17 at 08:39; Stop 03/15/17 at 08:40; Status DC Fentanyl Citrate (Fentanyl 2ml Vial) 100 mcg STK-MED ONCE .ROUTE ; Start at 08:39; Stop 03/15/17 at 08:40; Status DC Succinylcholine Chloride (Anectine) 200 mg STK-MED ONCE .ROUTE ; Start 03/15/17 at 08:39; Stop 03/15/17 at 08:40; Status DC Glycopyrrolate (Robinul) 1 mg STK-MED ONCE .ROUTE ; Start 03/15/17 at 08:39; Stop 03/15/17 at 08:40; Status DC Neostigmine Methylsulfate 5 mg STK-MED ONCE .ROUTE ; Start 03/15/17 at 08:40; Stop 03/15/17 at 08:41; Status DC Rocuronium [place] (Zemuron) 50 mg STK-MED ONCE .ROUTE ; Start 03/15/17 at 08:40 ; Stop 03/15/17 at 08:41; Status DC Propofol 20 ml @ As Directed STK-MED ONCE IV ; Start 03/15/17 at 08:40; Stop at 08:41; Status DC Lidocaine HCl (Lidocaine Pf 2% Vial) 5 ml STK-MED ONCE .ROUTE ; Start 03/15/17 at 08:40; Stop 03/15/17 at 08:41; Status DC Dexamethasone Sodium Phosphate (Decadron) 20 mg STK-MED ONCE .ROUTE ; Start at 08:40; Stop 03/15/17 at 08:41; Status DC Ondansetron HCl (Zofran) 4 mg STK-MED ONCE .ROUTE ; Start 03/15/17 at 08:40; Stop 03/15/17 at 08:41; Status DC Ketorolac Tromethamine (Toradol For Or Only) 30 mg STK-MED ONCE INJ ; Start at 08:40; Stop 03/15/17 at 08:41; Status DC Fentanyl Citrate (Fentanyl 2ml Vial) 100 mcg STK-MED ONCE .ROUTE ; Start at 10:32; Stop 03/15/17 at 10:33; Status DC Exam Abd: soft, fundus firm Assessment PPD#3 s/p and hernia repair Plan of Care: See new orders (D/c home.) ECTOR MACE Jr, MD Mar 16, 2017 15:06
--- NOTE | 2017-03-16 15:07 | DISCH ---
DISCHARGE INSTRUCTIONS Condition on Discharge Condition on Discharge: Stable Activity After Discharge Activity Instructions for Disc: Activity as tolerated Lifting Instructions after Dis: No heavy lifting Driving Instructions after Dis: Do not drive today Diet after Discharge Diet after Discharge: Regular Contacting the [facility]RTessa after DC Call your doctor for: Concerns you may have Follow-Up Follow up with: Dr. Pacheco in 1 week. ECTOR MACE Jr, MD Mar 16, 2017 15:07
[2017-03-16 16:06] VITALS: BP 117/71
--- NOTE | 2017-03-26 17:53 | PDOC3 ---
OB DISCHARGE SUMMARY DATE OF ADMISSION: 03/13/17 DATE OF DISCHARGE: 03/16/17 REASON FOR ADMISSION: Onset of labor PROCEDURES: NST INTRAPARTUM PROCEDURES: Spontanous Vag Deliv PROCEDURES: Others (Hernia Repair by Dr. Gibson) OPERATIONS: Others (Hernia repair) DISCHARGE DIAGNOSIS: Term Delivered DISCHARGE INFORMATION: Activity (as tolerated), Diet (regular), Instructions ( pelvic rest x 6 wks and no lifting > 20 lbs x 4 wks), Discharge to (home) HOSPITAL COURSE Term gestation resulted in vaginal delivery without complication. She had hernia repair by Dr. Gibson without complication. CONDITION AT DISCHARGE stable ECTOR MACE Jr, MD Mar 26, 2017 17:53
== END 2017-03-16 17:00 | disposition home or self-care (01) | DRG 775 ==
LOC: 3 SO LND 07:03
PROVIDERS: ADMIT Specialist; ATTEND Specialist
PROC: 10E0XZZ Delivery of Products of Conception, External Approach (ICD-10-PCS; 2017-03-13)
PROC: 3E0S3CZ (ICD-10-PCS; 2017-03-13)
PROC: 00HU33Z Insertion of Infusion Device into Spinal Canal, Percutaneous Approach (ICD-10-PCS; 2017-03-13)
PROC: 3E033VJ Introduction of Other Hormone into Peripheral Vein, Percutaneous Approach (ICD-10-PCS; 2017-03-13)
PROC: 0WQF0ZZ Repair Abdominal Wall, Open Approach (ICD-10-PCS; principal; 2017-03-15 09:00)
DX: O99.62 Diseases of the digestive system complicating childbirth (principal); K43.9 Ventral hernia without obstruction or gangrene; Z37.0 Single live birth; Z3A.39 39 weeks gestation of pregnancy; K42.9 Umbilical hernia without obstruction or gangrene
CPT/HCPCS: 36415; 80048; 85007; 85014; 85027; 86593; 86850; 86900; 86901; A4215; C1887; J0330; J0690; J1100; J1885; J2001; J2250; J2405; J2590; J2704; J2710; J2795; J3010; J3490; J7120; Q0163

== ENCOUNTER → 2018-06-05 | Outpatient (CLI) | payer OTHER ==
[~2018-06-05] MED LIST: CONTRAST GIVEN. MC PRN; IOHEXOL 240 MG/ML 50ML VIAL. PO ONE; IOHEXOL 300 MG/ML 100ML VIAL. IV ONE
--- NOTE | 2018-06-05 14:10 | RAD ---
EXAM: Abdomen and pelvis CT with intravenous contrast. HISTORY: Ventral hernia. TECHNIQUE: Computed tomographic images of the abdomen and pelvis were obtained following the administration of 75 cc Omnipaque 300 intravenous contrast. Multiplanar reformatting was performed. *One or more of the following individualized dose reduction techniques were utilized for this examination: 1. Automated exposure control. 2. Adjustment of the mA and/or kV according to patient size. 3. Use of iterative reconstruction technique. COMPARISON: None. FINDINGS: Evaluation of the lower thorax is unremarkable. There is slight hepatic steatosis and hepatomegaly. No focal hepatic lesion is seen. The gallbladder, pancreas and adrenal glands are unremarkable. The spleen is upper normal in size. There is no hydronephrosis or solid or cystic renal lesion. There is no appendicitis. There is no bowel obstruction or abnormal bowel wall thickening. There is focal narrowing of the sigmoid colon due to peristalsis. The bladder and uterus are unremarkable. There are multiple prominent ovarian follicles and there is trace pelvic free fluid, within physiologic limits. There is no lymphadenopathy. There is mild diastasis of the ventral abdominal wall with tiny fat-containing midline and right supraumbilical hernias measuring less than 10 mm. There is no suspicious osseous lesion. IMPRESSION: 1. Mild diastasis of the ventral abdominal wall with tiny superimposed fat-containing midline and right periumbilical hernias measuring less than 10 mm. 2. Mild hepatomegaly and hepatic steatosis. Electronically signed by: Taina Small MD (06/05/2018 2:06 PM) [id number]
== END | disposition home or self-care (01) ==
LOC: CT 10:13
PROVIDERS: ATTEND Specialist
DX: K43.9 Ventral hernia without obstruction or gangrene (principal); K76.0 Fatty (change of) liver, not elsewhere classified; R16.0 Hepatomegaly, not elsewhere classified; Z88.8 Allergy status to other drugs, medicaments and biological substances
CPT/HCPCS: 74177; Q9966; Q9967

== ENCOUNTER 2018-07-04 08:04 | Day surgery (SDC) | payer OTHER ==
[~2018-07-04] VITALS: Ht 162.6 cm; Wt 63.5 kg
[~2018-07-04 08:04] MED LIST changes: +BUPIVAC MPF-EPI 0.5%-1:200000 30 ML VIAL. ONE; +CLINDAMYCIN 900MG PREMIX 50 ML IV PRN; -CONTRAST GIVEN. MC PRN; +HYDROmorphone 2 MG/ML VIAL IV PRN; -IOHEXOL 240 MG/ML 50ML VIAL. PO ONE; -IOHEXOL 300 MG/ML 100ML VIAL. IV ONE; +IV RINGERS,LACTATED 1000ML 1,000 ML IV SCH; +LIDOCAINE 1% PF 2 ML VIAL. ID PRN; +MORPHINE SULFATE 2 MG/ML VIAL. IV PRN; +NORG1TAB6 PO; +ONDANSETRON PF 4 MG/2 ML VIAL. IV PRN; +PROCHLORPERAZINE 10 MG/2 ML VIAL. IV PRN; +fentaNYL PF VIAL 100 MCG/2 ML VIAL IV PRN
[2018-07-04 08:29] LABS: U PREG PATIENT NEGATIVE (NEG)
[2018-07-04] MEDS ORDERED: fentaNYL PF VIAL 250 MCG/5 ML VIAL ONE (08:33)
[2018-07-04] MEDS ORDERED: ROCURONIUM 100 MG/10 ML VIAL. ONE (08:33)
[2018-07-04] MEDS ORDERED: DESFLURANE > 120 MINUTES IH ONE (08:33)
[2018-07-04] MEDS ORDERED: PROPOFOL 20 ML IV ONE (08:33)
[2018-07-04] MEDS ORDERED: ONDANSETRON PF 4 MG/2 ML VIAL. ONE (08:33)
[2018-07-04] MEDS ORDERED: MIDAZOLAM HCL/PF 2 MG/2 ML VIAL. ONE (08:33)
[2018-07-04] MEDS ORDERED: DEXAMETHASONE SOD PHOS 20 MG/5 ML VIAL. ONE (08:33)
[2018-07-04 08:42] LABS: BASO # 0.1 x10^3/uL (0.0-0.2); BASO % 1 % (0-3); EOS # 0.1 x10^3/uL (0.0-0.7); EOS % 1 % (0-3); HEMATOCRIT 40.4 % (36.0-47.0); HEMOGLOBIN 14.1 g/dL (12.0-15.5); LYMPH # 2.4 x10^3/uL (1.0-4.8); LYMPH % 26 % (24-48); MEAN CORPUSCULAR HEMOGLOBIN 29 pg (25-35); MEAN CORPUSCULAR HGB CONC 35 g/dL (31-37); MEAN CORPUSCULAR VOLUME 83 fL (79-100); MONO # 0.5 x10^3/uL (0.0-1.1); MONO % 6 % (0-9); NEUT % 66 % (31-73); PLATELET COUNT 315 x10^3/uL (140-400); RED BLOOD COUNT 4.89 x10^6/uL (3.50-5.40); RED CELL DISTRIBUTION WIDTH 12.9 % (11.5-14.5); WHITE BLOOD COUNT 9.1 x10^3/uL (4.0-11.0)
[2018-07-04 08:57] LABS: CALCIUM 9.4 mg/dL (8.5-10.1); CREATININE 0.7 mg/dL (0.6-1.0); GFR 98.3; PROTHROMBIN TIME PATIENT 12.5 SEC (11.7-14.0)
[2018-07-04 09:02] LABS: ALBUMIN 4.1 g/dL (3.4-5.0); ALBUMIN/GLOBULIN RATIO 1.1 (1.0-1.7); TOTAL BILIRUBIN 0.2 mg/dL (0.2-1.0)
--- NOTE | 2018-07-04 09:22 | PDOC ---
SURGICAL PROGRESS NOTE Subjective No change in dictated H&P. Vital Signs Vital Signs Date Time Temp Pulse Resp B/P (MAP) Pulse Ox O2 Delivery O2 Flow Rate FiO2 07/04/18 08:27 98.9 79 18 116/72 100 Room Air 98.9 Labs Laboratory Tests Test 07/04/18 08:10 07/04/18 08:15 White Blood Count 9.1 x10^3/uL (4.0-11.0) Red Blood Count 4.89 x10^6/uL (3.50-5.40) Hemoglobin 14.1 g/dL (12.0-15.5) Hematocrit 40.4 % (36.0-47.0) Mean Corpuscular Volume 83 fL (79-100) Mean Corpuscular Hemoglobin 29 pg (25-35) Mean Corpuscular Hemoglobin Concent 35 g/dL (31-37) Red Cell Distribution Width 12.9 % (11.5-14.5) Platelet Count 315 x10^3/uL (140-400) Neutrophils (%) (Auto) 66 % (31-73) Lymphocytes (%) (Auto) 26 % (24-48) Monocytes (%) (Auto) 6 % (0-9) Eosinophils (%) (Auto) 1 % (0-3) Basophils (%) (Auto) 1 % (0-3) Neutrophils # (Auto) 6.0 x10^3uL (1.8-7.7) Lymphocytes # (Auto) 2.4 x10^3/uL (1.0-4.8) Monocytes # (Auto) 0.5 x10^3/uL (0.0-1.1) Eosinophils # (Auto) 0.1 x10^3/uL (0.0-0.7) Basophils # (Auto) 0.1 x10^3/uL (0.0-0.2) Prothrombin Time 12.5 SEC (11.7-14.0) Prothromb Time International Ratio 1.0 (0.8-1.1) Sodium Level 140 mmol/L (136-145) Potassium Level 4.0 mmol/L (3.5-5.1) Chloride Level 103 mmol/L (98-107) Carbon Dioxide Level 27 mmol/L (21-32) Anion Gap 10 (6-14) Blood Urea Nitrogen 7 mg/dL (7-20) Creatinine 0.7 mg/dL (0.6-1.0) Estimated GFR (Cockcroft-Gault) 98.3 BUN/Creatinine Ratio 10 (6-20) Glucose Level 87 mg/dL (70-99) Calcium Level 9.4 mg/dL (8.5-10.1) Total Bilirubin 0.2 mg/dL (0.2-1.0) Aspartate Amino Transf (AST/SGOT) 8 U/L (15-37) Alanine Aminotransferase (ALT/SGPT) 24 U/L (14-59) Alkaline Phosphatase 83 U/L (46-116) Total Protein 8.0 g/dL (6.4-8.2) Albumin 4.1 g/dL (3.4-5.0) Albumin/Globulin Ratio 1.1 (1.0-1.7) Urine Test Negative (NEG) Laboratory Tests Test 07/04/18 08:10 07/04/18 08:15 White Blood Count 9.1 x10^3/uL (4.0-11.0) Red Blood Count 4.89 x10^6/uL (3.50-5.40) Hemoglobin 14.1 g/dL (12.0-15.5) Hematocrit 40.4 % (36.0-47.0) Mean Corpuscular Volume 83 fL (79-100) Mean Corpuscular Hemoglobin 29 pg (25-35) Mean Corpuscular Hemoglobin Concent 35 g/dL (31-37) Red Cell Distribution Width 12.9 % (11.5-14.5) Platelet Count 315 x10^3/uL (140-400) Neutrophils (%) (Auto) 66 % (31-73) Lymphocytes (%) (Auto) 26 % (24-48) Monocytes (%) (Auto) 6 % (0-9) Eosinophils (%) (Auto) 1 % (0-3) Basophils (%) (Auto) 1 % (0-3) Neutrophils # (Auto) 6.0 x10^3uL (1.8-7.7) Lymphocytes # (Auto) 2.4 x10^3/uL (1.0-4.8) Monocytes # (Auto) 0.5 x10^3/uL (0.0-1.1) Eosinophils # (Auto) 0.1 x10^3/uL (0.0-0.7) Basophils # (Auto) 0.1 x10^3/uL (0.0-0.2) Prothrombin Time 12.5 SEC (11.7-14.0) Prothromb Time International Ratio 1.0 (0.8-1.1) Sodium Level 140 mmol/L (136-145) Potassium Level 4.0 mmol/L (3.5-5.1) Chloride Level 103 mmol/L (98-107) Carbon Dioxide Level 27 mmol/L (21-32) Anion Gap 10 (6-14) Blood Urea Nitrogen 7 mg/dL (7-20) Creatinine 0.7 mg/dL (0.6-1.0) Estimated GFR (Cockcroft-Gault) 98.3 BUN/Creatinine Ratio 10 (6-20) Glucose Level 87 mg/dL (70-99) Calcium Level 9.4 mg/dL (8.5-10.1) Total Bilirubin 0.2 mg/dL (0.2-1.0) Aspartate Amino Transf (AST/SGOT) 8 U/L (15-37) Alanine Aminotransferase (ALT/SGPT) 24 U/L (14-59) Alkaline Phosphatase 83 U/L (46-116) Total Protein 8.0 g/dL (6.4-8.2) Albumin 4.1 g/dL (3.4-5.0) Albumin/Globulin Ratio 1.1 (1.0-1.7) Urine Test Negative (NEG) BERNARDO VELASCO MD Jul 04, 2018 09:22
--- NOTE | 2018-07-04 09:25 | PDOC ---
SURGICAL PROGRESS NOTE Subjective Op Note: Surgeon...............................................Arthur Pre and post op diag.............................recurrent incarcerate ventral hernia Anesthesia..........................................General Procedure...........................................repair incarcerated recurrent ventral hernia Drains................................................none Blood loss..........................................10cc Fluids.................................................see anesthesia sheet Condition.............................................satisfactory Vital Signs Vital Signs Date Time Temp Pulse Resp B/P (MAP) Pulse Ox O2 Delivery O2 Flow Rate FiO2 07/04/18 08:27 98.9 79 18 116/72 100 Room Air 98.9 Labs Laboratory Tests Test 07/04/18 08:10 07/04/18 08:15 White Blood Count 9.1 x10^3/uL (4.0-11.0) Red Blood Count 4.89 x10^6/uL (3.50-5.40) Hemoglobin 14.1 g/dL (12.0-15.5) Hematocrit 40.4 % (36.0-47.0) Mean Corpuscular Volume 83 fL (79-100) Mean Corpuscular Hemoglobin 29 pg (25-35) Mean Corpuscular Hemoglobin Concent 35 g/dL (31-37) Red Cell Distribution Width 12.9 % (11.5-14.5) Platelet Count 315 x10^3/uL (140-400) Neutrophils (%) (Auto) 66 % (31-73) Lymphocytes (%) (Auto) 26 % (24-48) Monocytes (%) (Auto) 6 % (0-9) Eosinophils (%) (Auto) 1 % (0-3) Basophils (%) (Auto) 1 % (0-3) Neutrophils # (Auto) 6.0 x10^3uL (1.8-7.7) Lymphocytes # (Auto) 2.4 x10^3/uL (1.0-4.8) Monocytes # (Auto) 0.5 x10^3/uL (0.0-1.1) Eosinophils # (Auto) 0.1 x10^3/uL (0.0-0.7) Basophils # (Auto) 0.1 x10^3/uL (0.0-0.2) Prothrombin Time 12.5 SEC (11.7-14.0) Prothromb Time International Ratio 1.0 (0.8-1.1) Sodium Level 140 mmol/L (136-145) Potassium Level 4.0 mmol/L (3.5-5.1) Chloride Level 103 mmol/L (98-107) Carbon Dioxide Level 27 mmol/L (21-32) Anion Gap 10 (6-14) Blood Urea Nitrogen 7 mg/dL (7-20) Creatinine 0.7 mg/dL (0.6-1.0) Estimated GFR (Cockcroft-Gault) 98.3 BUN/Creatinine Ratio 10 (6-20) Glucose Level 87 mg/dL (70-99) Calcium Level 9.4 mg/dL (8.5-10.1) Total Bilirubin 0.2 mg/dL (0.2-1.0) Aspartate Amino Transf (AST/SGOT) 8 U/L (15-37) Alanine Aminotransferase (ALT/SGPT) 24 U/L (14-59) Alkaline Phosphatase 83 U/L (46-116) Total Protein 8.0 g/dL (6.4-8.2) Albumin 4.1 g/dL (3.4-5.0) Albumin/Globulin Ratio 1.1 (1.0-1.7) Urine Test Negative (NEG) Laboratory Tests Test 07/04/18 08:10 07/04/18 08:15 White Blood Count 9.1 x10^3/uL (4.0-11.0) Red Blood Count 4.89 x10^6/uL (3.50-5.40) Hemoglobin 14.1 g/dL (12.0-15.5) Hematocrit 40.4 % (36.0-47.0) Mean Corpuscular Volume 83 fL (79-100) Mean Corpuscular Hemoglobin 29 pg (25-35) Mean Corpuscular Hemoglobin Concent 35 g/dL (31-37) Red Cell Distribution Width 12.9 % (11.5-14.5) Platelet Count 315 x10^3/uL (140-400) Neutrophils (%) (Auto) 66 % (31-73) Lymphocytes (%) (Auto) 26 % (24-48) Monocytes (%) (Auto) 6 % (0-9) Eosinophils (%) (Auto) 1 % (0-3) Basophils (%) (Auto) 1 % (0-3) Neutrophils # (Auto) 6.0 x10^3uL (1.8-7.7) Lymphocytes # (Auto) 2.4 x10^3/uL (1.0-4.8) Monocytes # (Auto) 0.5 x10^3/uL (0.0-1.1) Eosinophils # (Auto) 0.1 x10^3/uL (0.0-0.7) Basophils # (Auto) 0.1 x10^3/uL (0.0-0.2) Prothrombin Time 12.5 SEC (11.7-14.0) Prothromb Time International Ratio 1.0 (0.8-1.1) Sodium Level 140 mmol/L (136-145) Potassium Level 4.0 mmol/L (3.5-5.1) Chloride Level 103 mmol/L (98-107) Carbon Dioxide Level 27 mmol/L (21-32) Anion Gap 10 (6-14) Blood Urea Nitrogen 7 mg/dL (7-20) Creatinine 0.7 mg/dL (0.6-1.0) Estimated GFR (Cockcroft-Gault) 98.3 BUN/Creatinine Ratio 10 (6-20) Glucose Level 87 mg/dL (70-99) Calcium Level 9.4 mg/dL (8.5-10.1) Total Bilirubin 0.2 mg/dL (0.2-1.0) Aspartate Amino Transf (AST/SGOT) 8 U/L (15-37) Alanine Aminotransferase (ALT/SGPT) 24 U/L (14-59) Alkaline Phosphatase 83 U/L (46-116) Total Protein 8.0 g/dL (6.4-8.2) Albumin 4.1 g/dL (3.4-5.0) Albumin/Globulin Ratio 1.1 (1.0-1.7) Urine Test Negative (NEG) BERNARDO VELASCO MD Jul 04, 2018 09:25
[2018-07-04] MEDS ORDERED: GLYCOPYRROLATE 1 MG/5 ML VIAL. ONE (09:47)
[2018-07-04] MEDS ORDERED: NEOSTIGMINE METHYLSULFATE 5 MG/5 ML SYRINGE. ONE (09:47)
[2018-07-04] MEDS: fentaNYL PF VIAL 100 MCG/2 ML VIAL IV PRN ×2 (11:22→12:25)
[2018-07-04] MEDS ORDERED: HYDR-2762 PO (11:45)
[2018-07-04] MEDS ORDERED: HYDROcodone/APAP 7.5/325MG 1 TAB TABLET PO ONE (12:00)
[2018-07-04 12:30] VITALS: BP 114/59
--- NOTE | 2018-07-05 11:56 | OP ---
DATE OF SURGERY: INDICATION FOR SURGERY: The patient had a previous hernia repair and comes back for repair of the same. Due to family reasons, she did not allow mesh to be placed as such. SURGEON: Torey Velasco M.D. PREOPERATIVE DIAGNOSIS: Recurrent incarcerated ventral hernia. POSTOPERATIVE DIAGNOSIS: Recurrent incarcerated ventral hernia. ANESTHESIA: General. PROCEDURE: Repair of incarcerated recurrent ventral hernia. DESCRIPTION OF PROCEDURE: Under general anesthesia, the patient was properly prepped and draped in a routine fashion. The incision which was above the umbilicus was excised and it was somewhat hypertrophic. This was transverse. We took a 15 blade, went on either side of it and used Metzenbaum scissors and a knife to cut it from the underlying tissues. There was scar tissue there, which we had to go through and then we could see the mass, which was just above and to the right of the umbilicus. We dissected down until we found the sac and followed it down to its neck. We could not reduce this as it just could not be reduced. As such, we entered the sac and then we were able to push through what appeared to be preperitoneal fat and no bowel back into the peritoneal cavity. She was not certain if she was going to get again and her again did not want to use mesh. As such, we defined the defect in the fascia, which was above the umbilicus and to the right clearly and where we have been to make certain that the preperitoneal space and I do not think we entered the peritoneum. It was clear and we then placed interrupted 0 Prolene sutures in the fascia, at least a centimeter back and a centimeter forward to approximate this wound, we did close it in a transverse fashion. This having been done, we then pulled up on the tied sutures and injected 0.5% Marcaine with epinephrine into the surrounding tissues and the fascia around the surgery site and then divided the sutures leaving the knots in place. We then used some 4-0 Vicryl to bury the knots so they would not be palpable. We then used more 4-0 Vicryl to close the subcutaneous tissues and then used interrupted 5-0 nylon to close the skin. We did not use Vicryl as we did not want any more hypertrophy if possible. A sterile Tegaderm dressing was applied per her request and the procedure was terminated. The blood loss was probably less than 10 mL. Fluids given can be obtained from the anesthesia sheet. No drains were used. CONDITION OF THE PATIENT: Satisfactory as she is returned to the recovery room. TOREY VELASCO MD DR: JODY/jd JOB#: [id number] / [id number] TAMIA
--- NOTE | 2018-07-07 12:22 | HP ---
ADMIT DATE: 07/04/2018 HISTORY OF PRESENT ILLNESS: The patient comes to the hospital with abdominal pain in the umbilical area. She has had this for about a year. She did have a hernia removed and repaired about a year ago after she had delivered. She did not want mesh put in because she thought she would get again. She knew this may come back if she gets again. At any rate, she is doing well now, but now has this mass at the umbilicus, which is painful, causes her discomfort and is quite severe at times. The patient did not have nausea or vomiting or anything else associated with it, but the mass is getting bigger. PAST MEDICAL HISTORY: Shows normal childhood diseases. No high blood pressure, cancer, TB or asthma. ALLERGIES: She has no allergies. PAST SURGICAL HISTORY: He has only had the surgery that is mentioned. SOCIAL HISTORY: She does not smoke, drink alcohol or use illicit drugs. FAMILY HISTORY: Noncontributory. REVIEW OF SYSTEMS: Negative except for the periumbilical pain, which is quite severe at times. She has no other GI symptoms. PHYSICAL EXAMINATION: GENERAL: Shows an alert female in no acute distress. HEAD, EYES, NOSE AND THROAT: Grossly normal. CHEST: Clear when auscultated and breath sounds were normal. HEART: Had no murmurs, heaves, friction rubs or thrills and the rate was regular being about 68 beats per minute. ABDOMEN: Soft. There was no organomegaly, no masses, and no tenderness, except for the umbilical area. There was a mass there just to the right and above the umbilicus. This was not particularly tender and knows no evidence of any inflammation. PELVIC: Was not done. RECTAL: Not done. EXTREMITIES: Grossly normal. IMPRESSION: Incarcerated ventral hernia. BERNARDO VELASCO MD DR: JODY/jd JOB#: [id number] / [id number] TAMIA
== END 2018-07-04 13:20 | disposition home or self-care (01) ==
LOC: SURG 08:04
PROVIDERS: ATTEND Specialist
DX: K43.6 Other and unspecified ventral hernia with obstruction, without gangrene (principal); Z98.890 Other specified postprocedural states; Z88.1 Allergy status to other antibiotic agents; Z79.899 Other long term (current) drug therapy
CPT/HCPCS: 36415; 49566; 80053; 81025; 85025; 85610; J0780; J1100; J2250; J2405; J2704; J2710; J3010; J3490